=== PATIENT | female | born 1995 | race Caucasian/White ===

== ENCOUNTER → 2017-07-22 | Outpatient (CLI) | payer OTHER ==
[2017-07-25 10:12] LABS: CHLAMYDIA TRACH RNA*** NOT DETECTED (NOT DETECTED); GC (NEIS GONORRHOEAE)RNA** NOT DETECTED (NOT DETECTED)
== END | disposition home or self-care (01) ==
LOC: C.LABSPEC 13:41
PROVIDERS: ATTEND Physician Assistant
DX: Z01.419 Encounter for gynecological examination (general) (routine) without abnormal findings (principal)

== ENCOUNTER 2017-09-11 20:18 | Emergency (ER) | payer OTHER ==
[~2017-09-11] VITALS: Ht 160 cm; Wt 62.4 kg
[2017-09-11 20:19] VITALS: TEMP 36.8; Ht 160 cm; Wt 62.4 kg
[2017-09-11] MEDS ORDERED: CYAN30003 PO (21:03)
[2017-09-11] MEDS ORDERED: LYSI500C2 PO (21:03)
[2017-09-11] MEDS ORDERED: THIA50TA3 PO (21:03)
[2017-09-11] MEDS ORDERED: BIOT1CAP9 PO (21:03)
[2017-09-11] MEDS ORDERED: IUD'IUD INT UTER (21:03)
[2017-09-11] MEDS ORDERED: CAT PO (21:03)
[2017-09-11] MEDS ORDERED: ASCA500 PO (21:03)
[2017-09-11 21:12] LABS: BASO % 0.9 %; BASO ABS # 0.06 K/uL (0-0.2); COMPLETE YES; EOS % 1.7 %; HEMATOCRIT 39.5 % (37-47); IG% 0.1 %; LYMPH % 26.3 %; LYMPH ABS # 1.81 K/uL (1.2-3.4); MEAN CORPUSCULAR HEMOGLOBIN 30.3 pg (25-34); MEAN CORPUSCULAR HGB CONC 33.7 g/dl (32-36); MEAN PLATELET VOLUME 9.3 fL (7.4-10.4); PLATELET COUNT 325 K/uL (130-400); RED BLOOD COUNT 4.39 M/uL (4.2-5.4); WHITE BLOOD COUNT 6.88 K/uL (4.8-10.8)
[2017-09-11 21:17] LABS: URINE APPEARANCE CLOUDY (CLEAR); URINE BILIRUBIN NEG (NEG); URINE COLOR YELLOW; URINE EPITHELIAL CELL AUTO >30 /lpf (0-5); URINE NITRITE NEG (NEG); URINE SPECIFIC GRAVITY 1.029 (1.000-1.030); UROBILINOGEN NEG (NEG); ZZUR CULT IF INDIC CLEAN CATCH NO
[2017-09-11 21:18] LABS: MANUAL MICROSCOPIC REQUIRED? NO; REVIEW REQ? YES
[2017-09-11 21:25] LABS: URINE MUCUS PRESENT (NONE PRSENT)
[2017-09-11 21:30] LABS: BUN/CREATININE RATIO 13.2 (10-20); CALCIUM 9.1 mg/dl (8.5-10.1); CREATININE 0.84 mg/dl (0.60-1.20); POTASSIUM 3.8 mmol/L (3.5-5.1)
[2017-09-11 21:33] LABS: ALB/GLOB RATIO 1.1 (0.9-2)
--- NOTE | 2017-09-11 22:04 | DIAGNOSTIC IMAGING REPORT ---
PELVIC COMPLETE NON OB HISTORY: 21 years-old Female right pelvic pain, IUD acute right-sided pelvic pain with intrauterine device COMPARISON: None available TECHNIQUE: Multiple real-time sonographic images of the deep pelvic structures were obtained transabdominally and transvaginally assessing grayscale appearance, color and spectral flow. FINDINGS: TRANSABDOMINAL: Anteflexed uterus measures 6.0 x 2.8 x 3.7 cm. Intrauterine device is noted. No endometrial thickening. Right ovary is unremarkable with arterial inflow documented. Left ovary also appears to be within normal limits. TRANSVAGINAL: Intrauterine device is present which appears to be in satisfactory positioning within the mid and fundal uterus endometrial cavity. No myometrial invasion. The right ovary measures within normal limits with normal appearing follicles present. Arterial inflow and venous outflow documented on the right. The left ovary also measures within normal limits with normal-appearing follicles present. Arterial inflow and venous outflow on the left is also documented. Trace free pelvic fluid, likely physiologic. IMPRESSION: 1. IUD appears to be in satisfactory positioning within the uterus. 2. Unremarkable sonographic appearance of the bilateral ovaries without evidence of torsion. 3. Trace free pelvic fluid, likely physiologic. The above report was generated using voice recognition software. It may contain grammatical, syntax or spelling errors. Electronically signed by: Adonay Pearce M.D. 09/11/2017 10:02 PM Dictated Date/Time: 09/11/2017 9:59 PM
[2017-09-11] MEDS ORDERED: AZITHROMYCIN 250 MG TAB PO ONE (22:15)
[2017-09-11] MEDS ORDERED: CEFTRIAXONE SOD INJ 250 MG/ML VIAL IM ONE (22:15)
[2017-09-11] MEDS ORDERED: ONDANSETRON 4MG OD TAB PO ONE (22:15)
[2017-09-11] MEDS ORDERED: CEFTRIAXONE SOD 350MG/ML 1 GM VIAL IM ONE (22:32)
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
[2017-09-11 22:48] VITALS: BP 123/83; PULSE 65; O2SAT 98
[2017-09-14 00:46] LABS: CHLAMYDIA TRACH RNA*** NOT DETECTED (NOT DETECTED); GC (NEIS GONORRHOEAE)RNA** NOT DETECTED (NOT DETECTED)
== END 2017-09-11 22:49 | disposition home or self-care (01) ==
LOC: C.EDB 20:20 → C.EDA 22:49
DX: R10.2 Pelvic and perineal pain (principal); J04.0 Acute laryngitis